=== PATIENT | female | born 1940 | race African-American/Black ===

== ENCOUNTER 2021-08-19 18:04 | Emergency (ER) | payer MEDICARE, OTHER ==
[~2021-08-19] VITALS: Ht 157.5 cm; Wt 58.1 kg
[~2021-08-19 18:04] MED LIST: ALPR0.254 PO; AMLO-187 PO; BACL20TA PO; CETI10TA74 PO; EZET10TA20 PO; FEXO180T81 PO; HYDR-2765 PO; LOSA25TA54 PO; TIZA-75 PO
[2021-08-19 18:20] VITALS: BP 181/78
[2021-08-19] MEDS ORDERED: IV NORMAL SALINE 500ML BAG 500 ML IV ONE ×2 (18:45→20:00)
--- NOTE | 2021-08-19 18:57 | PHYS DOC ---
Past Medical History Past Medical History: Hypertension, Other Additional Past Medical Histor: HIGH CHOL. Past Surgical History: No Surgical History, Other Additional Past Surgical Histo: RT KNEE AND HYST. Smoking Status: Current Every Day Smoker Alcohol Use: None Drug Use: None Adult General Chief Complaint Chief Complaint: WEAKNESS/GENERALIZED HPI HPI 81-year-old female with a history of hypertension, hyperlipidemia and mild dementia, who lives alone at home in the community, presents for evaluation of possible weakness. Daughter was concerned to patient sitting on the toilet and seemingly requiring assistance to get up off it today when she went to check on her. Patient herself states she feels fine and does not feel weak and does not have pain anywhere. She does not feel she needed to come to the emergency room today. Patient was able to ambulate in from the car to triage into her ED room. Daughter states her mental status is at baseline. Patient specifically denies fevers, nausea or vomiting, headache, focal or lateralizing weakness, numbness or tingling, neck stiffness/pain/meningismus, vision changes, upper respiratory congestion/rhinorrhea, cough, sore throat, shortness of breath or chest pain of any kind, abdominal pain of any kind, flank pain, midline back pain, dysuria, hematuria, polyuria or oliguria, changes in bowel habits, pain or swelling to arms or legs. Vital signs are appropriate here aside from a degree of elevated blood pressure. The patient is in no acute distress, pleasantly and appropriately interactive, moving all extremities equally, joking with me during her evaluation. Review of Systems Review of Systems A 12 point review of systems was completed and was negative except where noted in HPI above. Current Medications Current Medications Current Medications Medications (Trade) Dose Ordered Sig/Aruna Start Time Stop Time Status Last Admin Dose Admin Potassium Chloride (Klor-Con) 40 meq 1X ONCE 08/19/21 20:30 08/19/21 20:31 DC 08/19/21 20:12 40 MEQ Sodium Chloride 500 ml @ 500 mls/hr 1X ONCE 08/19/21 20:00 08/19/21 20:59 DC 08/19/21 19:46 500 MLS/HR Allergies Allergies Allergies Coded Allergies Type Severity Reaction Last Updated Verified No Known Drug Allergies 05/11/15 No Physical Exam Physical Exam 81-year-old female appearing nontoxic and in no acute distress. Head is normocephalic and atraumatic. Neck is supple and nontender. Oropharynx is moist. Lungs are clear to auscultation at all stations. There is a normal S1 and S2 without rubs or gallops and capillary refill is appropriate, less than 2 seconds globally. Abdomen is soft, nontender and nondistended. Skin is warm and dry without cyanosis, clubbing or edema. Psychiatrically, the patient demonstrates appropriate mood and affect and is alert. Evaluation of the extremities reveals BUEs and BLEs neurovascularly intact distally with strength 5 out of 5, sensation intact light touch in all nerve distributions, radial, DP and PT pulses 2+ and equal bilaterally, capillary refill less than 2 seconds, hands and feet warm and well-perfused. No dependent peripheral edema distally. No calf tenderness or swelling bilaterally. Homans test is negative bilaterally. Neurologically, cranial nerves II through XII are intact and there are no lateralizing deficits seen. Speech is normal. Language is normal. Coordination is normal. There is no dysmetria with zswiwz-ej-cltd or ymqf-ud-zhdk bilaterally. Strength is 5 out of 5 at all joints of bilateral upper and lower extremities. Sensation is intact light touch in bilateral upper and lower extremities. Patient ambulates with a narrow, steady, non-ataxic gait here in the emergency department and is alert and oriented x4. Current Patient Data Vital Signs Vital Signs Date Time Temp Pulse Resp B/P (MAP) Pulse Ox O2 Delivery O2 Flow Rate FiO2 08/19/21 18:20 98.9 67 18 181/78 (112) 99 Room Air 98.9 Lab Values Laboratory Tests Test 08/19/21 18:47 08/19/21 20:36 White Blood Count 8.9 x10^3/uL (4.0-11.0) Red Blood Count 3.77 x10^6/uL (3.50-5.40) Hemoglobin 10.5 g/dL (12.0-15.5) L Hematocrit 32.1 % (36.0-47.0) L Mean Corpuscular Volume 85 fL (79-100) Mean Corpuscular Hemoglobin 28 pg (25-35) Mean Corpuscular Hemoglobin Concent 33 g/dL (31-37) Red Cell Distribution Width 16.3 % (11.5-14.5) H Platelet Count 342 x10^3/uL (140-400) Neutrophils (%) (Auto) 72 % (31-73) Lymphocytes (%) (Auto) 16 % (24-48) L Monocytes (%) (Auto) 11 % (0-9) H Eosinophils (%) (Auto) 0 % (0-3) Basophils (%) (Auto) 1 % (0-3) Neutrophils # (Auto) 6.4 x10^3/uL (1.8-7.7) Lymphocytes # (Auto) 1.4 x10^3/uL (1.0-4.8) Monocytes # (Auto) 1.0 x10^3/uL (0.0-1.1) Eosinophils # (Auto) 0.0 x10^3/uL (0.0-0.7) Basophils # (Auto) 0.1 x10^3/uL (0.0-0.2) Sodium Level 137 mmol/L (136-145) Potassium Level 3.2 mmol/L (3.5-5.1) L Chloride Level 100 mmol/L (98-107) Carbon Dioxide Level 28 mmol/L (21-32) Anion Gap 9 (6-14) Blood Urea Nitrogen 17 mg/dL (7-20) Creatinine 1.0 mg/dL (0.6-1.0) Estimated GFR (Cockcroft-Gault) 64.2 BUN/Creatinine Ratio 17 (6-20) Glucose Level 118 mg/dL (70-99) H Calcium Level 9.6 mg/dL (8.5-10.1) Total Bilirubin 0.5 mg/dL (0.2-1.0) Aspartate Amino Transferase (AST) 15 U/L (15-37) Alanine Aminotransferase (ALT) 14 U/L (14-59) Alkaline Phosphatase 73 U/L (46-116) Troponin I High Sensitivity 8 ng/L (4-50) Total Protein 6.4 g/dL (6.4-8.2) Albumin 3.0 g/dL (3.4-5.0) L Albumin/Globulin Ratio 0.9 (1.0-1.7) L Urine Collection Type Unknown Urine Color (Auto) Colorless Urine Turbidity Clear Urine pH (Auto) 6.5 (<5.0-8.0) Urine Specific [place]man 1.003 (1.000-1.030) Urine Protein (Auto) Negative mg/dL (Negative) Urine Glucose (Auto)(UA) Negative mg/dL (Negative) Urine Ketones (Auto) Negative mg/dL (Negative) Urine Blood (Auto) Negative (Negative) Urine Nitrite Negative (Negative) Urine Bilirubin (Auto) Negative (Negative) Urine Urobilinogen (Auto) Normal mg/dL (Normal) Urine Leukocyte Esterase (Auto) Negative (Negative) Urine RBC 0 /HPF (0-2) Urine WBC 0 /HPF (0-4) Urine Squamous Epithelial Cells Mod /LPF Urine Bacteria Few /HPF (0-FEW) Laboratory Tests 08/19/21 18:47 Laboratory Tests 08/19/21 18:47 EKG EKG Sinus rhythm, no acute ST elevation or depression, EP interpretation. Nonischemic tracing. Radiology/Procedures Radiology/Procedures XR CHEST 1V 08/19/2021 6:55 PM INDICATION: Fatigue COMPARISON: None available TECHNIQUE: Portable frontal view of the chest is provided. FINDINGS: The cardiomediastinal silhouette is within normal limits. Lungs are clear. There are no significant pleural effusions. There is no pulmonary vascular congestion. No pneumothorax. No suspicious osseous abnormality. IMPRESSION: There is no acute cardiopulmonary process. Electronically signed by: Apryl Hernández MD (08/19/2021 7:15 PM) [facility] DICTATED and SIGNED BY: APRYL HERNÁNDEZ MD DATE: 08/19/211914 Course & Med Decision Making Course & Med Decision Making Well-appearing 81-year-old female presents for evaluation after requesting help from her daughter getting off the toilet this afternoon when her daughter went over to check on her. Seems to be at her neurocognitive baseline. Vital signs and clinical examination are reassuring. Neurologic examination is nonfocal. Will place IV and give a crystalloid bolus and will check labs, EKG, chest x-ray and urine and will then reevaluate. If work-up is reassuring, anticipate likely discharge home to follow-up closely with primary care. Patient and her daughter understand and agree. 2104: Patient resting comfortably in no acute distress on serial reassessments. She feels much, much better after IV fluid rehydration here in the emergency department. She is ambulatory with a narrow, steady, unassisted gait. Potassium slightly low and has been orally repleted. Otherwise, labs, EKG and imaging are wholly benign. In view of reassuring work-up in this well-appearing elderly female, now ambulatory without difficulty here in the emergency department, will discharge home to follow-up closely with primary care. Family understand that if she feels worse instead of better or develops other new symptoms of concern that they should return with her to the emergency department right away for reevaluation. All questions are answered. Dragon Disclaimer Dragon Disclaimer This electronic medical record was generated, in whole or in part, using a voice recognition dictation system. Departure Departure Impression: Primary Impression: Other fatigue Additional Impression: Dehydration Disposition: HOME / SELF CARE / HOMELESS Condition: IMPROVED Referrals: JOCELYN MERCER MD (PCP) Patient Instructions: Dehydration, Elderly Additional Instructions: Follow-up very closely with your primary care doctor in the next 2 to 4 days for reevaluation of your symptoms and a discussion of next best steps in care. Drink plenty of fluids to stay hydrated and get plenty of rest. Your potassium level was a little bit low today. Please make sure to have your potassium level rechecked by your primary doctor in the next week or so. Return to the emergency department right away for recurrent or worsening symptoms of any kind or with any other new symptoms of concern. Problem Qualifiers COLTEN HILL MD Aug 19, 2021 18:56
[2021-08-19 19:00] LABS: BASO # 0.1 x10^3/uL (0.0-0.2); BASO % 1 % (0-3); EOS % 0 % (0-3); HEMATOCRIT 32.1 % (36.0-47.0); HEMOGLOBIN 10.5 g/dL (12.0-15.5); LYMPH # 1.4 x10^3/uL (1.0-4.8); LYMPH % 16 % (24-48); MEAN CORPUSCULAR HEMOGLOBIN 28 pg (25-35); MEAN CORPUSCULAR HGB CONC 33 g/dL (31-37); MEAN CORPUSCULAR VOLUME 85 fL (79-100); MONO % 11 % (0-9); NEUT # 6.4 x10^3/uL (1.8-7.7); NEUT % 72 % (31-73); PLATELET COUNT 342 x10^3/uL (140-400); RED BLOOD COUNT 3.77 x10^6/uL (3.50-5.40); RED CELL DISTRIBUTION WIDTH 16.3 % (11.5-14.5); WHITE BLOOD COUNT 8.9 x10^3/uL (4.0-11.0)
--- NOTE | 2021-08-19 19:17 | RAD ---
XR CHEST 1V 08/19/2021 6:55 PM INDICATION: Fatigue COMPARISON: None available TECHNIQUE: Portable frontal view of the chest is provided. FINDINGS: The cardiomediastinal silhouette is within normal limits. Lungs are clear. There are no significant pleural effusions. There is no pulmonary vascular congestion. No pneumothora x. No suspicious osseous abnormality. IMPRESSION: There is no acute cardiopulmonary process. Electronically signed by: Lubna Hernández MD (08/19/2021 7:15 PM) [facility]
[2021-08-19 19:21] LABS: CALCIUM 9.6 mg/dL (8.5-10.1); GFR 64.2; POTASSIUM 3.2 mmol/L (3.5-5.1)
[2021-08-19 19:28] LABS: ALBUMIN/GLOBULIN RATIO 0.9 (1.0-1.7); TOTAL BILIRUBIN 0.5 mg/dL (0.2-1.0); TOTAL PROTEIN 6.4 g/dL (6.4-8.2)
[2021-08-19] MEDS ORDERED: POTASSIUM CHLORIDE 20 MEQ TABLET.ER. PO ONE (20:30)
[2021-08-19 20:54] LABS: BACTERIA,URINE FEW /HPF (0-FEW); RBC,URINE 0 /HPF (0-2); WBC,URINE 0 /HPF (0-4)
--- NOTE | 2021-08-20 02:44 | EKG ---
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
== END 2021-08-19 21:17 | disposition home or self-care (01) ==
LOC: ER 18:04
DX: E86.0 Dehydration (principal); R53.83 Other fatigue; I10 Essential (primary) hypertension; F17.200 Nicotine dependence, unspecified, uncomplicated
CPT/HCPCS: 36415; 71045; 80053; 81001; 84484; 85025; 93005; 96360; 96361; 99285; J7040